=== PATIENT | female | born 2000 | race African-American/Black ===

== ENCOUNTER 2019-08-21 12:23 | Emergency (ER) | payer OTHER ==
--- NOTE | 2019-08-21 12:36 | ED Physician Documentation ---
PD HPI DYSPNEA - Stated complaint Stated Complaint: WEAKNESS - Chief complaint Chief Complaint: Resp - History obtained from History obtained from: Patient, EMS - History of Present Illness Timing - onset: Today (Previously healthy 19-year-old woman, active duty in the [employer] got acutely ill this morning with shortness of breath, dry cough and chills. Was potentially exposed to a coronavirus patient. No recent travel for her though. She feels weak and dizzy. No possibility of . No leg pain or swelling. Reported by BLS EMT to have a room air sat of 100%, but then said she needed 10 L to maintain and 92% saturation later.) Review of Systems Constitutional: reports: Fever, Chills, Myalgias Nose: denies: Rhinorrhea / runny nose Throat: denies: Sore throat Cardiac: denies: Chest pain / pressure Respiratory: reports: Dyspnea, Cough PD PAST MEDICAL HISTORY - Past Medical History Past Medical History: No - Past Surgical History Past Surgical History: Yes - Present Medications Home Medications: Ambulatory Orders Medication Instructions Recorded Confirmed No Known Home Medications 08/21/19 08/21/19 - Allergies Allergies/Adverse Reactions: Allergies Allergy/AdvReac Type Severity Reaction Status Date / Time diphenhydramine Allergy Rash Verified 08/21/19 12:31 [From Benadryl] - Social History Does the pt smoke?: No Smoking Status: Never smoker Does the pt drink ETOH?: Yes Does the pt have substance abuse?: No - Immunizations Immunizations are current?: Yes PD ED PE NORMAL - Vitals Vital signs reviewed: Yes - General General: Alert and oriented X 3, No acute distress - HEENT HEENT: PERRL, EOMI - Neck Neck: Supple, no meningeal sign, No bony TTP - Cardiac Cardiac: RRR, No murmur - Respiratory Respiratory: No respiratory distress, Other (Mildly diminished throughout without focal findings) - Abdomen Abdomen: Non tender - Extremities Extremities: No edema, No calf tenderness / cord - Neuro Neuro: Alert and oriented X 3, Normal speech Results - Vitals Vitals: Vital Signs - 24 hr 08/21/19 08/21/19 08/21/19 12:26 13:00 15:14 Temperature 36.5 C 36.9 C Heart Rate 82 93 82 Respiratory 18 18 18 Rate Blood Pressure 115/65 125/67 117/66 O2 Saturation 100 100 100 Oxygen O2 Source Room air - Labs Labs: Laboratory Tests 08/21/19 08/21/19 08/21/19 12:40 12:40 12:51 WBC 10.9 H RBC 4.79 Hgb 13.2 Hct 40.7 MCV 85.0 MCH 27.6 MCHC 32.4 RDW 13.1 Plt Count 331 MPV 9.5 Neut # (Auto) 7.0 H Lymph # (Auto) 2.7 [place] # (Auto) 0.9 Eos # (Auto) 0.1 Baso # (Auto) 0.1 Absolute Nucleated RBC 0.00 Nucleated RBC % 0.0 Sodium 141 Potassium 3.9 Chloride 105 Carbon Dioxide 26 Anion Gap 10.0 BUN 14 Creatinine 0.6 Estimated GFR (MDRD) 153 Glucose 89 Calcium 9.0 Total Bilirubin 0.8 AST 21 ALT 16 Alkaline Phosphatase 75 Total Protein 7.5 Albumin 4.2 Globulin 3.3 Albumin/Globulin Ratio 1.3 Lipase 31 Group A Strep Rapid Negative PD MEDICAL DECISION MAKING - ED course ED course: 19-year-old woman with nonspecific syndrome, fairly normal exam, clear chest x- ray. Blood work very mild leukocytosis, no lymphopenia. Strep test negative, strep culture and coronavirus test pending. She needed no supplemental oxygen while in the department. And had normal pulse oximetry throughout her stay on telemetry. Departure - Departure Disposition: 01 Home, Self Care Clinical Impression: Viral bronchitis Condition: Good Record reviewed to determine appropriate education?: Yes Instructions: ED Viral Syndrome Comments: As discussed, your chest x-ray shows no pneumonia. Your blood work is pretty normal and does not have the usual changes that we are seeing with coronavirus testing. Your strep test is also negative. Return anytime if worsening. Tylenol or ibuprofen as needed for the aches and pains and drink plenty of fluids. As far as return to work, per CDC guidelines At least 3 days (72 hours) have passed since recovery defined as resolution of fever without the use of fever-reducing medications and improvement in respiratory symptoms (e.g., cough, shortness of breath); and, At least 7 days have passed since symptoms first appeared. Discharge Date/Time: 08/21/19 15:54
[2019-08-21 12:48] LABS: BASOPHILS # (AUTO) 0.1 10^3/uL (0.0-0.1); BASOPHILS % (AUTO) 0.6 %; EOSINOPHILS # (AUTO) 0.1 10^3/uL (0.0-0.7); EOSINOPHILS % (AUTO) 1.1 %; HGB - HEMOGLOBIN 13.2 g/dL (12.0-16.0); LYMPHOCYTES # (AUTO) 2.7 10^3/uL (1.5-3.5); LYMPHOCYTES % (AUTO) 24.9 %; MEAN CORPUSCULAR HEMOGLOBIN 27.6 pg (27.0-31.0); MEAN CORPUSCULAR HGB CONC 32.4 g/dL (32.0-36.0); MEAN PLATELET VOLUME 9.5 fL (7.9-10.8); MONOCYTES # (AUTO) 0.9 10^3/uL (0.0-1.0); MONOCYTES % (AUTO) 8.7 %; NEUTROPHILS % (AUTO) 64.2 %; PLT - PLATELET COUNT 331 10^3/uL (130-450); RED BLOOD COUNT 4.79 10^6/uL (4.20-5.40); RED CELL DISTRIBUTION WIDTH 13.1 % (12.0-15.0); WHITE BLOOD COUNT 10.9 x10^3/uL (4.8-10.8)
[2019-08-21 13:04] LABS: ALBUMIN 4.2 g/dL (3.2-5.5); ALBUMIN/GLOBULIN RATIO 1.3 (1.0-2.2); BILIRUBIN,TOTAL 0.8 mg/dL (0.2-1.0); CREATININE 0.6 mg/dL (0.4-1.0); TOTAL PROTEIN 7.5 g/dL (6.7-8.2)
[2019-08-21 13:06] LABS: RAPID STREP SCREEN Negative (Negative)
--- NOTE | 2019-08-21 13:23 | XRAY Report ---
Reason: cough Procedure Date: 08/21/2019 Accession Number: [id number] / [id number] Procedure: XR - Chest 1 View X-Ray CPT Code: 41445 Final Report FULL RESULT: EXAM: CHEST RADIOGRAPHY EXAM DATE: 08/21/2019 12:48 PM. CLINICAL HISTORY: Cough. COMPARISON: None. TECHNIQUE: 1 view. FINDINGS: Lungs/Pleura: Low lung volumes with mild crowding. Small amount of bronchial wall thickening centrally. No lobar consolidation or large effusion. No pneumothorax. Mediastinum: Cardiac silhouette size appears unremarkable. Other: None. IMPRESSION: Low lung volumes with mild hypoventilatory crowding. Small amount of bronchial wall thickening centrally, suggesting airways disease. No lobar consolidation or large effusions. RADIA
[2019-08-21 15:15] VITALS: BP 117/66
== END 2019-08-21 15:54 | disposition home or self-care (01) ==
LOC: ED 12:23
DX: J20.8 Acute bronchitis due to other specified organisms (principal)
CPT/HCPCS: 36415; 71045; 80053; 81599; 83690; 85025; 87070; 87077; 87430; 99283; 99284